=== PATIENT | female | born 1995 | race Two or more races ===

== ENCOUNTER 2019-01-05 15:53 | Emergency (ER) | payer SELFPAY ==
[~2019-01-05] VITALS: Ht 157.5 cm; Wt 54.0 kg
[2019-01-05] MEDS ORDERED: IBUPROFEN 600MG TABLET PO ONE (18:30)
[2019-01-05 19:08] VITALS: BP 122/81
== END 2019-01-05 19:12 | disposition home or self-care (01) ==
LOC: ER 15:53
DX: S39.012A Strain of muscle, fascia and tendon of lower back, initial encounter (principal); F12.10 Cannabis abuse, uncomplicated; W01.0XXA Fall on same level from slipping, tripping and stumbling without subsequent striking against object, initial encounter; Y93.89 Activity, other specified; Y92.89 Other specified places as the place of occurrence of the external cause; Y99.8 Other external cause status
CPT/HCPCS: 81025; 99283